=== PATIENT | female | born 1985 | race Asian ===

== ENCOUNTER 2023-11-26 14:50 | Emergency (ER) | payer SELFPAY ==
[~2023-11-26] VITALS: Ht 146 cm; Wt 50.0 kg
[2023-11-26 14:53] VITALS: BP 112/78; PULSE 92; RESP 18; TEMP 98.2; O2SAT 98
[2023-11-26 17:27] LABS: BASOPHILS % (AUTO) 0.4 % (0-1); EOSINOPHILS % (AUTO) 0.6 % (0-6); HEMATOCRIT 44.5 % (35.0-45.0); HEMOGLOBIN 15.1 g/dl (12.0-16.0); LYMPHOCYTES # (AUTO) 0.6 X10'3 (1.1-4.8); MEAN CORPUSCULAR HEMOGLOBIN 31.9 PG (27.0-31.0); MEAN CORPUSCULAR HGB CONC 33.9 g/dL (33.0-36.5); MEAN CORPUSCULAR VOLUME 94.1 FL (78-98); MEAN PLATELET VOLUME 7.9 FL (7.4-10.4); MONOCYTES # (AUTO) 0.6 X10'3 (0-0.9); MONOCYTES % (AUTO) 8.9 % (2-12); NEUTROPHILS # (AUTO) 5.3 X10'3 (1.8-7.7); NEUTROPHILS % (AUTO) 81.1 % (42-75); PLATELET COUNT 252 X10'3 (140-440); RED BLOOD COUNT 4.73 X10'6 (4.20-5.60); RED CELL DISTRIBUTION WIDTH 13.4 % (11.5-14.5); WHITE BLOOD COUNT 6.5 X10'3 (4.5-11.0)
[2023-11-26 18:10] LABS: ALBUMIN 3.3 G/DL (3.4-5.0); ANION GAP 9 (8-16); BLOOD UREA NITROGEN 5 MG/DL (7-18); BUN/CREATININE RATIO 8.3 (10.0-20.0); CALCIUM 8.8 MG/DL (8.5-10.1); CHLORIDE 103 MMOL/L (99-107); GLUCOSE 89 MG/DL (70-104); LIPASE 23 U/L (16-77); POTASSIUM 3.8 MMOL/L (3.5-5.1); SODIUM 138 MMOL/L (135-145); TOTAL CARBON DIOXIDE 26.4 MMOL/L (24-32); eCRCL 80 ML/MIN; eGFR > 90 ML/MIN
[2023-11-26 18:12] LABS: BETA HCG,QUANTITATIVE 30826 mIU/ml
== END 2023-11-26 18:13 | disposition left against medical advice (07) ==
LOC: ER 14:51
DX: O26.891 Other specified pregnancy related conditions, first trimester (principal); R10.9 Unspecified abdominal pain; Z53.21 Procedure and treatment not carried out due to patient leaving prior to being seen by health care provider; Z3A.01 Less than 8 weeks gestation of pregnancy
CPT/HCPCS: 36415; 80048; 83690; 84702; 85025; 99281

== ENCOUNTER 2024-03-04 09:18 | Outpatient (CLI) | payer MEDICAID | END 2024-03-04 23:59 | disposition home or self-care (01) | LOC: RAD 09:18 | PROVIDERS: ATTEND Obstetrics & Gynecology | DX: O34.80 Maternal care for other abnormalities of pelvic organs, unspecified trimester (principal); O02.1 Missed abortion; N88.8 Other specified noninflammatory disorders of cervix uteri; Z3A.00 Weeks of gestation of pregnancy not specified | CPT/HCPCS: 76801 ==